=== PATIENT | male | born 1955 | race Caucasian/White ===

== ENCOUNTER 2016-06-23 05:21 | Day surgery (SDC) | payer OTHER ==
[~2016-06-23] VITALS: Ht 180.3 cm; Wt 105.0 kg
--- NOTE | ~2016-06-23 | S ---
[facility] [place] [facility] [place] [address] SURGICAL PATH RPT PROCEDURE Name: EDUARDOKARL CUNNINGHAM Carly Room #: DEP [facility]..#: [id number] Admission: 06/23/16 Date of : 55 Discharge: 06/23/16 Report #: [id number] Path Case #: [id number] PATHOLOGY REPORT COLLECTION DATE: 06/23/2016 RECEIVED DATE: 06/23/2016 SUBMITTING PHYS: Dr. Karla Haywood OTHER PHYS: Dr. Rosales Mcqueen SPECIMEN(S) RECEIVED: A.Gallbladder * * * * * * * * * * * * FINAL DIAGNOSIS: Gallbladder, cholecystectomy: - Mild chronic cholecystitis. - Cholesterolosis. - Cholelithiasis. - Incidental reactive lymph node. (IUV:all; d/t: 06/24/2016) PATHOLOGIST: Aisha Rubio M.D. REPORT ELECTRONICALLY SIGNED BY: Aisha Rubio M.D. DATE/TIME: 06/24/2016 16:45 * * * * * * * * * * * * GROSS PATHOLOGY: Received in formalin labeled "EduardoKarl and gallbladder," is a 6.7 x 2.8 x 1.3 cm, previously opened gallbladder with topete-green and wrinkled serosal surfaces. The gallbladder was previously opened to reveal bright red to light green and granular mucosa with diffuse yellow streaking and an average wall thickness of 0.2 cm. A 1.2 cm in greatest dimension black, nodular, and granular appearing calculus is present and no masses are noted grossly. A 0.3 cm in greatest dimension pink-topete lymph node is present near the cystic duct. Ripper Operator sections from the body and fundus are submitted along with the proximal margin and lymph node in cassette A1. (TTL; 06/23/2016) CLINICAL HISTORY: Symptomatic cholelithiasis INITIAL CPT CODE(S): A; 26480 Professional services performed by [facility] at [address] [address] SURGICAL PATH RPT PROCEDURE Name: KARL FORRESTER Room #: [facility].#: [id number] Admission: 06/23/16 Date of : 55 Discharge: 06/23/16 Report #: [id number] Path Case #: [id number] , [place] [address] Technical services performed by [facility] at [address] [place] [address], [facility] [address] [address]. [facility] [place] [address] PHONE: [phone] DIRECTOR: Anand Enriquez M.D. * * * END OF REPORT * * *
--- NOTE | ~2016-06-23 | EKG ---
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
--- NOTE | ~2016-06-23 | O ---
[facility] [place] [address] OPERATIVE REPORT Name: ANTHONY FORRESTER Room #: DEP [facility]..#: [id number] Admission: 06/23/16 Attend Phys: Karla Haywood MD, Discharge: 06/23/16 Date of : 55 Report #: [id number] THIS REPORT FOR: //name// CC: Rosales Haywood DATE OF SERVICE: 06/23/2016 PREOPERATIVE DIAGNOSES: 1. Symptomatic cholelithiasis. 2. Hypertension. 3. Hypercholesterolemia. POSTOPERATIVE DIAGNOSES: 1. Symptomatic cholelithiasis. 2. Intraabdominal adhesions. 3. Incarcerated recurrent incisional ventral hernia. 4. Hypertension. 5. Hypercholesterolemia. PROCEDURES PERFORMED: 1. Laparoscopic cholecystectomy with intraoperative cholangiogram. 2. Laparoscopic lysis of adhesions. 3. Laparoscopic reduction and primary suture repair of an incarcerated recurrent incisional ventral hernia. SURGEON: Karla Haywood M.D. GEL COAT SPRAYER: Jerry Bustillo M.D. ANESTHESIA: General endotracheal anesthesia. ESTIMATED BLOOD LOSS: Minimal (less than 5 mL). COMPLICATIONS: None appreciated. SPECIMENS: Gallbladder to pathology. INDICATIONS: The patient is a 61-year-old male who presented with a few year history of intermittent right upper quadrant to right flank pain of unknown etiology. The patient does have a history of a small splenic artery aneurysm for which he has undergone CT imaging evaluation and this showed evidence of cholelithiasis. The patient had no evidence of cholecystitis, appendiceal inflammation or any other inflammatory process. Upon evaluation, the patient did relate that his discomfort was post-prandial in nature and accompanied by nausea. As such, indication was for laparoscopic cholecystectomy [facility] [address] [place] [address] OPERATIVE REPORT Name: MITZYANTHONY Carly Room #: DEP [facility] M..#: [id number] Admission: 06/23/16 Attend Phys: Karla Haywood MD, Discharge: 06/23/16 Date of : 55 Report #: [id number] today for symptomatic cholelithiasis and intraoperative findings of omental adhesions as well as an incarcerated recurrent incisional ventral hernia around his umbilicus were identified that required lysis of adhesions with reduction of the incarcerated omentum from the recurrent hernia and suture repair of the defect. DESCRIPTION OF PROCEDURE: After explaining the risks, benefits and alternatives of the procedure with the patient in detail in the preoperative holding area and obtaining written consent, the patient was brought to the operating room and placed supine on the operating room table. After conducting a thorough timeout procedure verifying correct patient and procedure, the patient was given general endotracheal anesthesia. Once adequate anesthesia was obtained, SCDs were placed on the patient's bilateral lower extremities. He was given a preoperative dose of antibiotics in line with the SCIP protocol. The patient's abdomen was prepped and draped in standard surgical sterile fashion. 5 mL of 0.5% Marcaine with epinephrine were used to anesthetize the skin in the right upper quadrant and midclavicular line in a subcostal location. A #15 bladed scalpel was used to create a small skin carol at this location. A 5-mm Visiport was placed over 0-degree 5-mm laparoscope and was introduced through this incision site. Once intraabdominal placement was verified visually, the obturator for the trocar and laparoscope were both removed and the abdomen was insufflated to 15 mmHg using carbon dioxide gas. The laparoscope was changed to a 5-mm 30-degree laparoscope, which was reintroduced through this trocar. The entire abdomen was evaluated to ensure no injury upon entry. We immediately identified omental adhesions around the mid portion of the abdomen where we saw mesh from a prior umbilical hernia repair. At this juncture, I proceeded to place 2 additional 5-mm trocars. One was placed in the right flank in a subcostal location, the other was placed in subxiphoid location. Both trocars were placed under direct vision after anesthetizing the skin at each location with 5 mL of 0.5% Marcaine with epinephrine and I had created small skin nicks using #15 bladed scalpel. I now proceeded to carry out a laparoscopic lysis of adhesions using Harmonic scalpel to skeletonize posterior aspect of the anterior abdominal wall and takedown all of these adhesions. No loops of bowel work tethered to the abdominal wall whatsoever and therefore, we were able to avoid these entirely. Once we had taken down all the adhesions, there was identified a band of omentum that had snuck in between the synthetic mesh for the umbilical hernia repair and the actual fascial defect thereby showing an incarcerated recurrent incisional ventral hernia. At this juncture, I placed an 11 mm Visiport in the supraumbilical location by anesthetizing the skin at that location with 5 mL of 0.5% Marcaine with epinephrine and I created a 1-cm vertical incision using #15 bladed scalpel. The trocar was placed under direct vision and was seen to be cephalad to the superior most aspect of the umbilical hernia patch. The patient was now placed in reverse Trendelenburg with right side elevated. The scope was placed in supraumbilical trocar and I proceeded to use the inferolateral most port along the patient's right flank to grasp the fundus of the gallbladder and elevated in a cephalad direction. Careful tedious [facility] [address] [place] [address] OPERATIVE REPORT Name: ANTHONY FORRESTER Room #: DEP [facility] M.R.#: [id number] Admission: 06/23/16 Attend Phys: Karla Haywood MD, Discharge: 06/23/16 Date of : 55 Report #: [id number] dissection was undertaken down around the cholecystocystic junction using a combination of Harmonic scalpel and [place] dissector. Once I had attained a critical view, namely the cystic duct emanating from the infundibulum of the gallbladder and coursing the common bile duct as well as cystic artery running the surface of the gallbladder and I created a window behind each, I transected the cystic artery nearest the gallbladder side using Harmonic scalpel for hemostasis. A single clip was now placed along cystic duct nearest the gallbladder side and a small ductotomy was made just distal to this clip using EndoShears. This ductotomy was cannulated using the taut cholangiocatheter setup and an intraoperative cholangiogram was obtained. We had prompt opacification of the cystic duct with both intra and extrahepatic bile ducts becoming opacified. There was antegrade flow of contrast into the duodenum with no evidence of obstruction. There were a few small air bubbles that cleared with flushing. Cholangiocatheter setup was now removed, 3 clips were placed along the cystic duct nearest common bile duct side and was transected above these clips using Harmonic scalpel to help seal the end of the duct closed. Further retraction at the infundibulum of the gallbladder in cephalad direction allowed me to elevate the gallbladder off the liver bed using Harmonic scalpel for hemostasis. This was slightly difficult due to the patient's inferior most right rib having what appeared to be a large callus projecting inward that made visualization of the dome of the gallbladder slightly difficult. Nonetheless, we were able to remove this from the liver bed under direct vision with simple manipulation laparoscopically. Once completely detached, the laparoscope was removed, changed to the right subcostal 5 mm trocar and the EndoCatch bag was placed in supraumbilical trocar. Specimen was placed within it under direct vision and pursestring suture was drawn. Specimen was removed from the abdomen under direct vision. I now used 0 PDS suture on a i-dispo.com suture passer device to place a expnyb-zz-mrymx fascial suture around my fascial incision. Evaluation of the gallbladder fossa showed complete hemostasis with no spillage. The clips appeared to be seated nicely on the cystic duct stump. All ports removed under direct vision. The abdomen was fully desufflated. The 0 PDS suture had been tied down under direct vision when the intraabdominal pressure was 5 mmHg to ensure I did not catch a loop of bowel or omentum in the suture closure. Evaluation of the incarcerated incisional hernia necessitated me utilizing electrocautery to dissect in the subcutaneous space significantly inferior to my initial incision. Ultimately, I was able to identify the incarcerated omentum that had been transected and this was removed with a hemostat and passed off the field and the fascial defect was identified and sutured closed using 0 PDS suture in a wdblfh-bw-[id number] fashion. This was tied down. The wound was irrigated and I proceeded to close all skin wounds using 4-0 Monocryl in standard subcuticular fashion and Dermabond glue was applied to all skin wounds. The gallbladder was opened on the back table showing significant findings of cholesterolosis and cholelithiasis, but no other pathologic findings were identified. At the end of the procedure, all instrument, needle and sponge counts were correct. The patient tolerated the procedure without incident. He was awakened in the operating room and [address] [address] OPERATIVE REPORT Name: MITZYANTHONY Carly [id number] Admission: 06/23/16 Attend Phys: Karla Haywood MD, Discharge: 06/23/16 Date of : 55 Report #: [id number] transitioned to the recovery room in stable condition with no apparent complications. <ELECTRONICALLY SIGNED> By: Karla Haywood MD, FACS 06/23/16 1536 1410 1501 Karla Haywood MD, FACS /nt
[~2016-06-23 05:21] MED LIST: AMLODIPINE BESY10 MG PO; ASPIRIN81 M2 PO; CIALIS5 MG PO; COZAAR 50 MG TA50 M2 PO; NORVASC10 MG PO; PRAVACHOL40 MG PO; PRAVASTATIN SOD20 MG PO
[2016-06-23 08:54] VITALS: BP 135/96
[2016-06-23 11:40] VITALS: BP 135/96
== END 2016-06-23 12:15 | disposition home or self-care (01) ==
LOC: OR 05:21 → TBA 05:21 → OR 08:36
DX: K80.10 Calculus of gallbladder with chronic cholecystitis without obstruction (principal); K43.0 Incisional hernia with obstruction, without gangrene; E78.00 Pure hypercholesterolemia, unspecified; I10 Essential (primary) hypertension; R59.9 Enlarged lymph nodes, unspecified
CPT/HCPCS: 50010; 50101; 50249; 50411; 50555; 50558; 50962; 51975; 52265; 53307; 54022; 54118; 55245; 55317; 56462; 56525; 56526; 62110; 62900; 70005

== ENCOUNTER 2017-06-06 10:05 | Emergency (ER) | payer OTHER ==
[~2017-06-06] VITALS: Ht 185.4 cm; Wt 99.8 kg
--- NOTE | ~2017-06-06 | EKG ---
[address] [place] [address] ELECTROCARDIOGRAM REPORT Name: ANTHONY FORRESTER [id number] Admission: 06/06/17 Attend Phys: Discharge: 06/06/17 Date of : 55 Report #: [id number] THIS REPORT FOR: //name// [facility] ED Test Date: 2017-06-06 Test Time: 10:11:08 Pat Name: ANTHONY FORRESTER Department: Room: Gender: M Bulbs Farmworker: [id number] : 1955 Requested By: Olesya Godinez Order Number: [id number] MD: Miguel Calhoun Measurements Intervals [address] Rate: 79 P: 13 ID: 143 QRS: 29 QRSD: 152 T: -7 QT: 406 QTc: 466 Interpretive Statements Sinus rhythm Right bundle branch block Compared to ECG 06/23/2016 08:20:02 No significant changes Electronically Signed On 06-07-2017 9:19:32 FILE CONVERSION OPERATOR by Miguel Calhoun [email or web address] <ELECTRONICALLY SIGNED> By: Miguel Calhoun MD, [facility] 06/07/17 0919 1011 101 Miguel Calhoun MD, FACC /EPI
[2017-06-06 10:39] LABS: ABSOLUTE NEUTROPHILS 3.1 thou/uL (1.4-8.2); BASOPHILS 1.1 % (0.0-2.0); EOSINOPHILS 3.3 % (0.0-3.0); HEMATOCRIT 43.2 % (42.0-52.0); HEMOGLOBIN 15.1 gm/dL (14.0-18.0); LYMPHOCYTES 28.2 % (24.0-44.0); MCH 32.3 pg (26.0-34.0); MCV 92.1 fL (80.0-100.0); MONOCYTES 7.1 % (1.0-8.0); PLATELET COUNT 207 thou/uL (150-400); POLYS 60.3 % (36.0-66.0); RDW 12.8 % (10.5-14.5); WBC 5.2 thou/uL (4.0-11.0)
[2017-06-06 10:41] LABS: MANUAL DIFF NO
[2017-06-06 10:48] LABS: ANION GAP 10 mmol/L (7-16); BUN 17 mg/dL (7-18); CALCIUM 9.2 mg/dL (8.5-10.1); CHLORIDE 103 mmol/L (98-107); CO2 26 mmol/L (21-32); GLUCOSE 151 mg/dL (74-106); POTASSIUM 4.1 mmol/L (3.5-5.1); SODIUM 139 mmol/L (136-145)
[2017-06-06 10:57] LABS: ALKALINE PHOSPHATASE 109 U/L (46-116); DIRECT BILIRUBIN 0.1 mg/dL (<0.1-0.3); SGOT 32 U/L (15-37); SGPT 38 U/L (30-65); TOTAL BILIRUBIN 0.8 mg/dL (<0.1-1.0); TROPONIN-I < 0.04 ng/mL (<0.06)
== END 2017-06-06 14:22 | disposition home or self-care (01) ==
LOC: ER 10:05
PROVIDERS: Emergency Medicine
DX: R07.9 Chest pain, unspecified (principal); I10 Essential (primary) hypertension; E78.00 Pure hypercholesterolemia, unspecified; C61 Malignant neoplasm of prostate; Z98.890 Other specified postprocedural states; Z88.6 Allergy status to analgesic agent

== ENCOUNTER → 2018-04-04 | Outpatient (CLI) | payer OTHER | LOC: CAT 07:07 | DX: Z13.6 Encounter for screening for cardiovascular disorders (principal); E78.00 Pure hypercholesterolemia, unspecified ==

== ENCOUNTER → 2019-01-09 | Outpatient (CLI) | payer OTHER | LOC: RAD 09:02 | DX: R05 Cough (principal) ==

== ENCOUNTER → 2019-07-17 | Outpatient (CLI) | payer OTHER ==
[2019-07-17 09:26] LABS: CALCIUM 9.3 mg/dL (8.5-10.1)
== END ==
LOC: CAT 07:33
PROVIDERS: Urology
DX: D73.89 Other diseases of spleen (principal); J98.4 Other disorders of lung; I72.8 Aneurysm of other specified arteries; K56.41 Fecal impaction; Z90.49 Acquired absence of other specified parts of digestive tract

== ENCOUNTER → 2019-11-14 | Outpatient (CLI) | payer OTHER | LOC: LAB 08:23 → LABMALL 08:23 | DX: C61 Malignant neoplasm of prostate (principal) ==

== ENCOUNTER → 2019-12-17 | Outpatient (CLI) | payer OTHER ==
[2019-12-17 22:06] LABS: PSA 4.4 ng/mL (0.0-4.0); TESTOSTERONE* 4 ng/dL (264-916)
== END ==
LOC: LABMALL 08:03
PROVIDERS: ATTEND Urology
DX: C61 Malignant neoplasm of prostate (principal)

== ENCOUNTER → 2020-01-30 | Outpatient (CLI) | payer OTHER ==
[2020-01-30 23:06] LABS: PSA 2.3 ng/mL (0.0-4.0); TESTOSTERONE* 12 ng/dL (264-916)
== END ==
LOC: LABMALL 06:41
PROVIDERS: ATTEND Family Medicine
DX: C61 Malignant neoplasm of prostate (principal)

== ENCOUNTER → 2020-03-26 | Outpatient (CLI) | payer OTHER ==
[2020-03-26 10:03] LABS: ABSOLUTE NEUTROPHILS 4.9 thou/uL (1.4-8.2); BASOPHILS 0.4 % (0.0-2.0); EOSINOPHILS 2.9 % (0.0-3.0); HEMOGLOBIN 14.2 gm/dL (14.0-18.0); LYMPHOCYTES 20.3 % (24.0-44.0); MCH 33.3 pg (26.0-34.0); MCHC 35.6 g/dL (28.0-37.0); MCV 93.7 fL (80.0-100.0); MONOCYTES 7.3 % (1.0-8.0); PLATELET COUNT 231 thou/uL (150-400); POLYS 69.1 % (36.0-66.0); RBC 4.27 mil/uL (4.50-6.00); RDW 12.3 % (10.5-14.5)
[2020-03-26 11:00] LABS: ALBUMIN 4.1 g/dL (3.4-5.0); CREATININE 0.9 mg/dL (0.7-1.3); TOTAL BILIRUBIN 0.9 mg/dL (0.2-1.0)
[2020-03-26 11:21] LABS: CALCIUM 9.2 mg/dL (8.5-10.1)
== END ==
LOC: LAB 09:27
PROVIDERS: ATTEND Internal Medicine Hematology & Oncology
DX: C61 Malignant neoplasm of prostate (principal)

== ENCOUNTER → 2020-04-28 | Outpatient (CLI) | payer OTHER | LOC: LAB 09:11 | PROVIDERS: ATTEND Urology | DX: C61 Malignant neoplasm of prostate (principal) ==